=== PATIENT | male | born 1990 | race Caucasian/White ===

== ENCOUNTER 2021-12-25 15:44 | Emergency (ER) | payer OTHER ==
[~2021-12-25 15:44] MED LIST: ASACOL HD800 MG PO; CIPRO500 MG PO; CLARITIN10 MG PO; LEVAQUIN750 MG PO; METRONIDAZOLE500 MG PO; PREDNISONE 10MG10 MG PO; PREDNISONE 20MG20 MG PO; PRILOSEC20 MG PO; PROBIOTIC1 EAC1 PO; PROTONIX 40MG T40 MG PO; STELARA45 MG/0.5 SC; STELARA90 MG/1 ML IM; ZOFRAN ODT4 MG SL; ZYRTEC10 M3 PO
[2021-12-25 16:00] LABS: BASOPHIL 0.3 % (0-2); EOSINOPHIL 1.1 % (0-5); HGB 14.2 g/dl (13.2-18.0); LYMPHOCYTE 8.2 % (15-48); MCH 27.5 pg (25.0-31.0); MCHC 31.6 g/dL (32.0-36.0); MONOCYTE 7.5 % (0-12); MPV 10.8 fL (6.0-9.5); NEUTROPHIL 82.1 % (41-80); NRBC 0; PLT 243 K/uL (150-400); RBC 5.17 M/uL (4.70-6.00); RDW 13.8 % (11.5-14.0)
[2021-12-25 16:16] LABS: ALBUMIN 3.9 g/dL (3.4-5.0); BILIRUBIN - TOTAL 0.9 mg/dL (0.2-1.0); BUN/CREAT RATIO (CALC) 6.9 RATIO; CREATININE 1.3 mg/dL (0.67-1.17); GLOBULIN (CALCULATION) 3.6 g/dL; POTASSIUM 3.6 mmol/L (3.5-5.1); TOTAL PROTEIN 7.5 g/dL (6.4-8.2)
[2021-12-25 18:11] LABS: BILIRUBIN NEGATIVE (NEGATIVE); BLOOD NEGATIVE Ery/uL (NEGATIVE); CLARITY CLEAR (CLEAR); COLOR YELLOW (YELLOW); GLUCOSE (U) NORMAL (NORMAL); LEUKOCYTES NEGATIVE Leu/uL (NEGATIVE); NITRITE NEGATIVE (NEGATIVE); PROTEIN 1+ mg/dL (NEGATIVE); SPECIFIC GRAVITY 1.025 (1.001-1.030); UROBILINOGEN 0.2 mg/dL (0.2-1.0)
[2021-12-25 18:19] LABS: MUCOUS TRACE; URINARY WBC RARE
== END 2021-12-25 20:20 | disposition home or self-care (01) ==
LOC: FER 15:44
PROVIDERS: Emergency Medicine
DX: E86.0 Dehydration (principal); Z88.8 Allergy status to other drugs, medicaments and biological substances; Z28.310 Unvaccinated for COVID-19
CPT/HCPCS: 36415; 80053; 81001; 82150; 83690; 85025; 99284; J7030